=== PATIENT | female | born 1965 | race African-American/Black ===

== ENCOUNTER → 2016-06-24 14:18 | Emergency (ER) | payer SELFPAY ==
[~2016-06-24 14:18] MED LIST: ADVIL PO; ALEVE220 MG PO; FOLIC PO; GOODY'S EX-STR1 EAC1 PO; MTX2.5 PO; NORCO1 TA2 PO; P5 PO; PRIN20 PO
== END | disposition home or self-care (01) ==
LOC: ER 14:18
DX: M25.542 Pain in joints of left hand (principal); M25.541 Pain in joints of right hand; M25.562 Pain in left knee; M25.561 Pain in right knee; I10 Essential (primary) hypertension; F17.200 Nicotine dependence, unspecified, uncomplicated; M06.9 Rheumatoid arthritis, unspecified; Z79.52 Long term (current) use of systemic steroids; Z79.82 Long term (current) use of aspirin; Z79.899 Other long term (current) drug therapy
CPT/HCPCS: 96372; 99283; J1170